=== PATIENT | male | born 1995 | race Caucasian/White ===

== ENCOUNTER 2018-03-13 21:07 | Emergency (ER) | payer OTHER ==
[2018-03-13] MEDS: ONDANSETRON 4 MG ORAL DISINTEGRATING TAB (Q0162 PER 1MG) PO (22:30)
== END 2018-03-14 00:28 | disposition home or self-care (01) ==
LOC: M ED 03-14 00:28
DX: S06.0X0A Concussion without loss of consciousness, initial encounter (principal); V86.69XA Passenger of other special all-terrain or other off-road motor vehicle injured in nontraffic accident, initial encounter
CPT/HCPCS: Q0162

== ENCOUNTER 2020-08-04 08:15 | Emergency (ER) | payer OTHER ==
[~2020-08-04] VITALS: Ht 175.3 cm; Wt 83.6 kg
[~2020-08-04 08:15] MED LIST: ZOFR4TAB14 PO
[2020-08-04 08:25] VITALS: BP 140/81
== END 2020-08-04 09:29 | disposition home or self-care (01) ==
LOC: M ED 08:15
DX: Z20.828 Contact with and (suspected) exposure to other viral communicable diseases (principal)
CPT/HCPCS: 87804; 99284; U0003